=== PATIENT | male | born 1960 | race Hispanic/Latino ===

== ENCOUNTER 2017-08-07 11:32 | Outpatient (CLI) | payer OTHER ==
[2017-08-07 12:16] LABS: Hematocrit 38.1 % (35.5-45.6); Mean Corpuscular HGB Conc 34 % (32-34); Mean Corpuscular Hemoglobin 28 pg (28-32); Mean Corpuscular Volume 83 fl (84-94); Platelet Count 258 K/mm3 (140-440); Red Blood Count 4.59 M/mm3 (3.65-5.03); Red Cell Distribution Width 13.4 % (13.2-15.2)
[2017-08-07 12:41] LABS: BUN/Creatinine Ratio 13; Blood Urea Nitrogen 12 mg/dL (9-20); Calcium 8.9 mg/dL (8.4-10.2); Hemolysis Index 5
== END 2017-08-07 11:33 | disposition home or self-care (01) ==
LOC: CARD 11:32
PROVIDERS: ATTEND Surgery
DX: I10 Essential (primary) hypertension (principal); K40.90 Unilateral inguinal hernia, without obstruction or gangrene, not specified as recurrent
CPT/HCPCS: 36415; 80048; 85027; 93005; 93010

== ENCOUNTER 2017-08-27 12:13 | Day surgery (SDC) | payer OTHER ==
[~2017-08-27 12:13] MED LIST: LACTATED RINGERS 1,000 ML IV SCH; MARCAINE-EPI/PF 0.25%-1:200,000 INFILTRATI ONE; NACL 0.9% IR ONE; VERSED IV NR
[2017-08-27] MEDS ORDERED: MARCAINE 0.25% INFILTRATI ONE (12:37)
[2017-08-27] MEDS ORDERED: DIPRIVAN 10 MG/ML IV ONE (13:43)
[2017-08-27] MEDS ORDERED: SUBLIMAZE ONE (13:43)
[2017-08-27] MEDS ORDERED: NACL BACTERIOSTATIC INFILTRATI ONE (13:49)
[2017-08-27 14:14] LABS: Basophils # (Auto) 0.1 K/mm3 (0.0-0.1); Basophils % (Auto) 1.2 % (0.0-1.8); Eosinophils # (Auto) 0.3 K/mm3 (0.0-0.4); Eosinophils % (Auto) 3.7 % (0.0-4.3); Hemoglobin 12.9 gm/dl (11.8-15.2); Lymphocytes % (Auto) 24.9 % (13.4-35.0); Mean Corpuscular HGB Conc 34 % (32-34); Mean Corpuscular Hemoglobin 29 pg (28-32); Mean Corpuscular Volume 86 fl (84-94); Monocytes # (Auto) 0.6 K/mm3 (0.0-0.8); Monocytes % (Auto) 8.1 % (0.0-7.3); Platelet Count 226 K/mm3 (140-440); Red Blood Count 4.44 M/mm3 (3.65-5.03); Red Cell Distribution Width 13.9 % (13.2-15.2)
[2017-08-27] MEDS ORDERED: HEPARIN SUB-Q NR (14:30)
[2017-08-27 14:31] LABS: Alanine Aminotransferase 28 units/L (7-56); Albumin 4.5 g/dL (3.9-5); BUN/Creatinine Ratio 26; Blood Urea Nitrogen 23 mg/dL (9-20); Hemolysis Index 18
[2017-08-27] MEDS ORDERED: XYLOCAINE MPF 2% ONE (14:49)
[2017-08-27] MEDS ORDERED: ZOFRAN ONE (14:49)
[2017-08-27] MEDS ORDERED: ZEMURON IV ONE (14:49)
[2017-08-27] MEDS ORDERED: DECADRON ONE (14:49)
[2017-08-27] MEDS ORDERED: ANCEF/STERILE WATER 2 GM/20 ML IV NR (15:00)
[2017-08-27] MEDS ORDERED: DILAUDID ONE ×2 (15:10→17:06)
[2017-08-27] MEDS ORDERED: ROBINUL ONE (15:23)
[2017-08-27] MEDS ORDERED: BLOXIVERZ ONE (15:23)
[2017-08-27] MEDS ORDERED: NACL 0.9% 1000 ML 1,000 ML ONE (15:47)
--- NOTE | 2017-08-27 16:14 | Anesthesia Day of Surgery ---
Anesthesia Day of Surgery - Day of Surgery Patient Examined: Yes Patient H&P Reviewed: Yes Patient is NPO: Yes
--- NOTE | 2017-08-27 16:14 | Anesthesia Consultation ---
Anesthesia Consult and Med Hx Date of service: 08/27/17 - Airway Anesthetic Teeth Evaluation: Good ROM Head & Neck: Adequate Mental/Hyoid Distance: Adequate Mallampati Class: Class II Intubation Access Assessment: Probably Good - Pulmonary Exam CTA: Yes - Pre-Operative Health Status ASA Pre-Surgery Classification: ASA2 Proposed Anesthetic Plan: General - Cardiovascular System Hx Hypertension: Yes (6 MOS) - Central Nervous System Hx Psychiatric Problems: No - Other Systems Hx Alcohol Use: No Hx Substance Use: No Hx Cancer: No
--- NOTE | 2017-08-27 16:57 | Procedure Note ---
Date of procedure: 08/27/17 Pre-op diagnosis: left inguinal hernia Post-op diagnosis: same (indirect) Procedure: Open repair of indirect left inguinal hernia Description of procedure: Patient was placed supine on the operating room table. GETA was administered. An indwelling Kline catheter was inserted. Lower abdomen, genitalia and left upper thigh were prepped and draped in the usual sterile manner. Skin and subcutaneous tissue at the proposed side of the incision were infiltrated with 7 mL of 0.5% Marcaine with epinephrine. Skin was incised. Hemostasis was obtained with the Bovie. External oblique aponeurosis was exposed. External oblique aponeurosis over the inguinal canal was incised. Ilioinguinal nerve was identified and carefully preserved. A Long drain was passed about the cord contents at the level of the symphysis. The cord contents were skeletonized with immediate identification of a moderate sized indirect hernia sac. The hernia sac was dissected away from the spermatic vessels and vas deferens and the sac ligated high with pursestring suture of 2-0 silk. The area of Hesselbach's triangle was felt to be somewhat attenuated and was therefore repaired by approximating the conjoined tendon medially to the shelving portion of Poupart's ligament with multiple interrupted sutures of 0 Ethibond. External oblique aponeurosis was approximated with a running suture of 3-0 Vicryl. Skin was approximated with a running subcuticular suture of 4-0 Monocryl. A sterile dressing was then applied and was secured with Tegaderm. Patient tolerated the procedure well. He was extubated in the operating room and was taken to PACU in stable condition. Anesthesia: GETA Surgeon: FRANCISCO BEST Estimated blood loss: minimal Pathology: list (hernia sac) Specimen disposition: to lab Condition: stable Disposition: PACU
[2017-08-27] MEDS: DILAUDID IV PRN ×2 (17:00→17:10)
[2017-08-27] MEDS ORDERED: PERCOCET 5/325 ONE (17:08)
[2017-08-27] MEDS ORDERED: PERCOCET 5/325 PO PRN (17:14)
[2017-08-27 18:38] VITALS: BP 150/77
== END 2017-08-27 12:14 | disposition home or self-care (01) ==
LOC: OR 12:13
PROVIDERS: ATTEND Surgery
DX: K40.90 Unilateral inguinal hernia, without obstruction or gangrene, not specified as recurrent (principal); I10 Essential (primary) hypertension
CPT/HCPCS: 36415; 49505; 80053; 85025; 88302; J0690; J1100; J1170; J1644; J2250; J2405; J2704; J2710; J3010; J7030; J7120